=== PATIENT | female | born 1940 | race Caucasian/White ===

== ENCOUNTER → 2021-11-01 | Outpatient (CLI) | payer MEDICARE | LOC: RAD 11:16 | DX: M25.562 Pain in left knee (principal); Z78.0 Asymptomatic menopausal state | CPT/HCPCS: 73562 ==

== ENCOUNTER → 2021-11-15 | Outpatient (CLI) | payer MEDICARE | LOC: ECHO 10:53 | DX: R79.89 Other specified abnormal findings of blood chemistry (principal); I07.1 Rheumatic tricuspid insufficiency | CPT/HCPCS: ECHO; 93306 ==